=== PATIENT | female | born 1990 | race Caucasian/White ===

== ENCOUNTER 2017-10-17 11:26 | Outpatient (CLI) ==
[2015-09-17 08:17] VITALS: BMI 22.8
--- NOTE | 2017-10-17 13:18 | DI ---
EXAMINATION: AP supine view of the abdomen. HISTORY: Abdominal pain COMPARISON: CT of the abdomen pelvis from 05/28/2015 and plain film of the abdomen 09/16/2016 FINDINGS: There is a small calcification seen in the right pelvis which is new compared to previous e xams likely a stone situated at the right ureteral vesicle junction. There is a dense nephrogram on t he right. The CT scan does show multiple small bilateral stones. No acute osseous abnormalities. The re is no obstruction or ileus. There are four lumbar-type vertebral bodies. IMPRESSION: 1. Probable obstructive right UVJ stone as described. If clinically indicated CT may be helpful. Unexpected result
== END 2017-10-17 11:27 | disposition home or self-care (01) ==
LOC: RAD 11:26
PROVIDERS: ATTEND Nurse Practitioner
DX: R10.9 Unspecified abdominal pain (principal)